=== PATIENT | female | born 1990 | race Caucasian/White ===

== ENCOUNTER 2020-06-26 10:13 | Inpatient (IN) | payer BC ==
[2020-06-26] MEDS ORDERED: Oxytocin/Normal Saline 60 UNIT/1,000 ML BAG ONE (10:15)
[2020-06-26] MEDS ORDERED: Succinylcholine 200 MG/10 ML MDV IV ONE (10:45)
[2020-06-26] MEDS ORDERED: Propofol 200 MG/20 ML SDV IV ONE (10:45)
[2020-06-26] MEDS ORDERED: Dexamethasone 4 MG/ML SDV IV ONE (10:45)
[2020-06-26] MEDS ORDERED: Methylergonovine 0.2 MG/1 ML Amp ONE (10:59)
[2020-06-26] MEDS ORDERED: ceFAZolin 2 GM in Premix Bag 1 BAG IV ONE (11:00)
[2020-06-26] MEDS ORDERED: Misoprostol 400 MCG (4 X 100 MCG TAB) ONE (11:14)
[2020-06-26] MEDS ORDERED: Misoprostol 400 MCG (4 X 100 MCG TAB) RECTAL ONE (11:15)
[2020-06-26] MEDS ORDERED: Lactated Ringers 1,000 ML IV ONE (11:15)
[2020-06-26] MEDS ORDERED: Methylergonovine 0.2 MG/1 ML Amp IM ONE (11:15)
[2020-06-26] MEDS ORDERED: Tranexamic Acid 1,000 MG in Sodium Chloride 0.9% 100 ML IV ONE (11:15)
[2020-06-26] MEDS ORDERED: Oxytocin/Normal Saline 30 UNIT/500 ML BAG IV SCH (11:31)
[2020-06-26] MEDS ORDERED: Acetaminophen/oxyCODONE 325-5 MG Tab PO PRN (11:36)
[2020-06-26] MEDS ORDERED: Naloxone 2 MG/2 ML Syringe IVPUSH PRN (11:36)
[2020-06-26] MEDS ORDERED: Carboprost Tromethamine 250 MCG/1 ML Amp IM PRN (11:36)
[2020-06-26] MEDS ORDERED: Tranexamic Acid 1,000 MG in Sodium Chloride 0.9% 100 ML IV PRN (11:36)
[2020-06-26] MEDS ORDERED: Acetaminophen 325 MG Tab PO PRN (11:36)
[2020-06-26] MEDS ORDERED: diphenhydrAMINE 50 MG/ML SDV IVPUSH PRN (11:36)
[2020-06-26] MEDS ORDERED: Ondansetron 4 MG/2 ML SDV IVPUSH PRN (11:36)
[2020-06-26] MEDS ORDERED: ePHEDrine 50 MG/ML SDV IVPUSH PRN (11:36)
[2020-06-26] MEDS ORDERED: fentaNYL Citrate/PF 1,500 MCG/30 ML PCA Vial ONE (11:54)
[2020-06-26] MEDS ORDERED: fentaNYL Citrate/PF 1,500 MCG/30 ML PCA Vial IV PRN ×2 (12:00→12:15)
[2020-06-26] MEDS ORDERED: Ketorolac 30 MG/ML SDV IVPUSH ONE (12:00)
[2020-06-26] MEDS ORDERED: Metoclopramide 10 MG/2 ML SDV IVPUSH PRN (13:00)
[2020-06-26] MEDS: Simethicone 80 MG Tab.Chew PO SCH ×3 (13:12→20:22)
--- NOTE | 2020-06-26 14:39 | OR ---
DATE: 06/26/2020 PREOPERATIVE DIAGNOSES: 1. Intrauterine at 33 and 2/7 weeks, confirmed with 6 and 1/7 weeks ultrasound. 2. Vaginal bleeding, most likely secondary to placenta previa. 3. Placenta previa. 4. Status post betamethasone last month. 5. Hypocoiled umbilical cord per problem list. 6. G4, P2-0-1-2. POSTOPERATIVE DIAGNOSES: 1. Intrauterine at 33 and 2/7 weeks, confirmed with 6 and 1/7 weeks ultrasound-delivered. 2. Vaginal bleeding, most likely secondary to placenta previa. 3. Placenta previa. 4. Status post betamethasone last month. 5. Hypocoiled umbilical cord per problem list. 6. G4, P2-0-1-2. 7. hemorrhage with an EBL of 1000 mL. 8. Uterine atony, requiring TXA 1 g, Cytotec 800 mcg rectally, and Methergine 0.2 mg IM. 9. Excessive bleeding and blood noted upon entry into the uterus with bleeding suspected secondary to placenta previa. ANESTHESIA: General. ESTIMATED BLOOD LOSS: 1000 mL. IV FLUIDS: 1500 mL. URINE OUTPUT: 200 mL, an kim-colored yellow. START: 10:55. UTERINE INCISION: 10:56. DELIVERY: 10:56. STOP: 11:18. FINDINGS: Male, score and weight pending. PROCEDURE IN DETAIL: After proper consent was obtained, the patient was brought to the operating room, where abdomen was prepped and draped in normal sterile fashion. The patient was placed in supine position with left lateral tilt using Betadine for scrub due to stat nature. General anesthesia was subsequently induced. Subsequently, skin incision was made on lower abdomen in transverse Pfannenstiel- type fashion. This was carried down the fascia and scored in the midline. Subcutaneous tissue was raked laterally bluntly and fascial incision was extended transversely in a blunt technique. Rectus and pyramidalis muscles were dissected from the fascia using blunt technique both inferiorly and superiorly and rectus muscles were in midline with blunt technique. Abdominal cavity was entered in blunt technique. Incision was extended superiorly and inferiorly with blunt technique. King O large retractor was then introduced and used. Vesicouterine peritoneum was identified, incised in transverse fashion with Metzenbaum scissors and a bladder flap was made digitally. A curvilinear incision was made on the lower uterine segment at 1056 hours. Minimal clear fluid returned with excessive amount of bright red blood and some darker clot-type blood. Uterine incision was then extended in a transverse fashion using blunt technique. vertex was then delivered through the incision followed by the rest of the infant without difficulty. Mouth and nares were suctioned. Cord was doubly clamped and cut and infant was brought over to the team for resuscitation. Then, approximately 10 mL of cord blood was then obtained for labs. Placenta then delivered with gentle cord traction and fundal massage. Uterine cavity was then cleared of all blood clots and debris with lap sponge. Grady clamps were used to grasp the uterine incision, and this was closed in a running locked fashion and tied at lateral margins with 1-0 Vicryl. Second imbricating layer was applied with 1-0 Vicryl and tied at lateral margins. First inspection of the uterine incision revealed hemostasis. At this time, uterine atony was noted. TXA had been given. Cytotec 800 mcg rectally was called for and Methergine 0.2 mg was called for to be given. King O was then removed and paracolic gutters were then cleared of all blood clots and debris with lap sponge. Anterior cul-de-sac was then irrigated copiously. All blood clots and debris were removed. Second and final inspection of the uterine incision and the cul-de-sac revealed hemostasis. Rectus muscles were then reapproximated in midline with [id number] stitch of 1-0 Vicryl. Subfascial tissue found to be hemostatic. Fascia closed in a running fashion, tied at lateral margin with 0 looped PDS. Subcutaneous tissue was irrigated copiously. Hemostasis was reassured. Skin was reapproximated with medium janie. Sterile Aquacel dressing applied. Uterine fundus was firm and massaged at the conclusion of the case -3 below umbilicus. No immediate complications were noted. Sponge, lap, and needle counts were correct. The patient received 2 g of Ancef preoperatively, Pitocin per protocol, and received Toradol at the conclusion of case for pain control as well as a LIFE SCIENCES INSTRUCTOR. Mother is currently stable at the time of dictation. Infant is being worked up and evaluated by Dr. Gan and NICU team is on their way. [facility] /[id number] ARELIS
--- NOTE | 2020-06-26 15:45 | HP ---
PATIENT IDENTIFICATION: Sapna Kowalski is a 30-year-old G4, P2-0-1-2, intrauterine at 33-2/7 weeks with posterior placenta previa, presents with vaginal bleeding. HISTORY OF PRESENT ILLNESS: The patient states around 8 a.m. this morning she had some different discharge and preceding this over the last 24 hours has not been feeling very well. Then, at approximately 9:45, she has noticed vaginal bleeding that was described as bright red blood, similar to a period like bleed. She was subsequently brought in via ambulance. She does note feeling more bleeding when she was in the ambulance and arrived. Ambulance did note some mild clots with vaginal bleeding as well. The patient denies any pain. She denies any leaking of fluid. To put this in context, she had an ultrasound done in May that did reveal a complete previa by chart review and this was noted prior with problem list listing on March 18, 2020. She had an ultrasound on 06/24/2020 with ultrasound of umbilical artery Doppler and ultrasound biophysical profile with no stress, with normal CARMEN, BPP of 8/8, estimated weight of 24% with normal umbilical arterial Doppler and addendum to this stay showing a posterior placenta is identified, but the tip to the internal os is not well demonstrated on the static images series. This also notes that a complete previa was noted on the 05/27/2020 ultrasound. Records called for, reviewed as below, and supplemented by patient history. ANTEPARTUM LABORATORIES: ABO blood type O positive. Negative antibody. Rubella immune. Syphilis antibody is nonreactive. Negative hepatitis B surface antigen. Negative HIV. Hemoglobin last done on 05/27/2020 was 11.7 with 1 hour GTT being 84. ALLERGIES: The patient is allergic to sulfa drugs. MEDICATIONS: The patient states she has been on vitamins and Unisom as needed. OBSTETRIC HISTORY: 1. 05/17/2013, delivered 40-1/7 weeks, 6 pounds 10.1 ounce female, spontaneous vaginal delivery. 2. 06/28/2015, 39-6/7 weeks, 6 pounds 15.3 ounce male, spontaneous vaginal delivery. 3. Spontaneous AB in 04/2019. PAST MEDICAL HISTORY: Remarkable for asthma with inducible asthma with rescue inhaler, never intubated and never needed steroids as well as anxiety noting going off medication in October 2011. PAST SURGICAL HISTORY: D and C noted and wisdom teeth extraction noted in 2008 and 2011. The patient relates a surgery with clitoral abscess done in [place]. FAMILY HISTORY: Hypertension in mother. Father with heart disease. Maternal grandmother with Alzheimer disease. Heart disease in maternal grandfather. Heart attack in paternal grandfather. Negative family history of defects, diabetes, cystic fibrosis, labor, seizures, spontaneous abortions, multiple births, or bleeding problems or anesthesia problems. SOCIAL HISTORY: The patient lives in the [facility]. She denies any tobacco, alcohol, or drug use. REVIEW OF SYSTEMS: Quickly obtained. Negative for fever, chills, sweats, cough, cold, runny nose, change in bowel or bladder habits, swelling, numbness, tingling, and otherwise review of systems fully reviewed and felt to be contributory to the above. OBJECTIVE: Vital Signs: To be updated and listed in [employer]. The patient is afebrile. Heart rate by central exam was approximately 92, respiratory rate was 16. Appearance: Female, appears stated age, acting appropriate. Nontoxic appearance. Somewhat tearful in discussing the course and her vaginal bleeding. Head: Atraumatic. EOMs intact. PERRLA. No scleral icterus. No obvious otorhinorrhea. Mucous membranes moist. Neck: No obvious tenderness. Lungs: Clear to auscultation bilaterally. No increased work of breathing. Heart: S1, S2. Regular rate and rhythm. Abdomen: Gravid. Robert's indeterminate. Nontender, nondistended. Bowel sounds positive. No organomegaly, pulsatile masses, or obvious hernias. No rebound, rigidity, or guarding. Genitourinary: Pad was removed. Did note bright red blood and some clots in the pad that was removed and subsequent gingerly exam was splitting the labia around the vaginal area and does reveal approximately a golf ball-sized clot with active bleeding behind this. Extremities: No peripheral edema. Deep tendon reflexes 2 to 3/4 bilaterally and symmetric in lower extremities. Psychiatric: Mood and affect congruent. Judgment and insight intact. Skin: Without cyanosis, clubbing, or jaundice. heart tones were detected immediately and felt to be reassuring. Tocometer revealed no evidence of contractions. The patient was evaluated in the ER. Labs were drawn there including a CBC, type and cross match for 4 units, as well as COVID testing. IV had been started by ambulance crew. OR was notified before the patient arrived to the ER, was prepping after previous case and as soon as they were ready, labs were drawn. Consent was obtained. The patient was brought to the operating room where a primary low transverse was performed under general anesthesia. ASSESSMENT: 1. Intrauterine at 33-2/7 weeks confirmed with 6-1/7 week ultrasound. 2. Vaginal bleeding most likely related to the placenta previa. 3. Placenta previa. This was noted on previous ultrasounds. Please see notes as above. 4. Status post betamethasone per patient, receiving it in the past. I believe in May she received betamethasone per chart review. 5. Per chart hypocoiled umbilical cord per problem list. 6. G4, P2-0-1-2. PLAN: Due to her vaginal bleeding diagnosed placenta previa, I did discuss with the patient proceeding to the OR in a stat fashion to proceed with primary low transverse . I did discuss with her risks, benefits, alternatives, and complications of including, but not limited to infection; bleeding; damage to internal organs such as bowel, bladder, tubes, uterus, ovaries, and sometimes fetus; rarely needing a blood transfusion or further surgery; and even rarer maternal or . She understands, agrees, and wished to proceed. Verbal and written consent obtained. Questions were answered. Proceed to the OR as soon as crew was ready and available from the ER in a stat fashion where primary low transverse was done under general anesthesia. Please see op report for further details. [facility] /[id number]
[2020-06-26] MEDS: Docusate Sodium 100 MG Cap PO PRN (17:42)
[2020-06-26] MEDS: Ketorolac 30 MG/ML SDV IVPUSH SCH ×2 (17:42→23:43)
[2020-06-26] MEDS: Lactated Ringers 1,000 ML IV SCH (19:30)
[2020-06-27] MEDS: Lactated Ringers 1,000 ML IV SCH (03:13)
[2020-06-27] MEDS: Ketorolac 30 MG/ML SDV IVPUSH SCH (05:37)
[2020-06-27] MEDS: Simethicone 80 MG Tab.Chew PO SCH ×4 (08:32→21:15)
[2020-06-27] MEDS: Acetaminophen/oxyCODONE 325-5 MG Tab PO PRN ×3 (08:32→21:15)
[2020-06-27] MEDS: Docusate Sodium 100 MG Cap PO PRN ×2 (08:32→21:15)
[2020-06-27] MEDS: Prenatal Multivitamin with Calcium/Folic Acid/Iron Tab PO SCH (08:32)
--- NOTE | 2020-06-27 09:27 | PN ---
DATE: 06/27/2020 SUBJECTIVE: Postop day #1. A 30-year-old female, status post emergency primary low transverse section at 33 weeks 2 days' gestation for hemorrhaging complete placenta previa. Procedure was carried out with an estimated blood loss of 1000 mL and uterine atony requiring TXA, Cytotec, and Methergine. After initial recovery, the patient continued to do well. No chest pain or shortness of breath. Nursing staff has noted that she has fair skin and appears pale, but denies any lightheadedness or anemia symptoms when they had her up to ambulate once. She is tolerating her regular diet and they will be advancing her cares today. She did have some gas distention and that discomfort was improved after ambulating and being able to pass some flatus. Otherwise, she also suffers from some chronic anxiety and previously was treated with Effexor. She is not certain at this time if she is ready to restart medications, but does want to discuss what her options are. OBJECTIVE: General: The patient doing well, resting in her hospital bed. Vital Signs: Temperature is 98.7, pulse 87, blood pressure 113/72, respiratory rate of 16, and O2 saturations 98% on room air. Heart: Regular without any murmur. Lungs: Clear to auscultation bilaterally. Abdomen: Distended, but soft. Positive bowel sounds in all 4 quadrants. Aquacel dressing is intact with no obvious bleeding or strike through. Extremities: Trace edema. No erythema or tenderness noted. A Cristina catheter in place with adequate urine output. Psychiatric: The patient is demonstrating appropriate insight, judgment. Normal motor and speech content. Appropriate level of concern and anxiety for the given circumstances and her history. LABORATORY DATA: Admission hemoglobin of 11.6, currently down to 9.2. Admission platelets of 250, currently down to 223. ASSESSMENT: 1. Status post emergency section. 2. Intrapartum hemorrhage of approximately 1000 mL. 3. Complete placenta previa. 4. Anxiety. PLAN: Discussed with the patient possible discharge tomorrow as long as things go well today. Otherwise, likely discharge the day after that. Her baby is in the intensive care unit in [place] and she is getting regular updates. She certainly understands that there is not much that she can do for her baby in [place] at this time and ensuring that she has appropriate recovery is important so as not to become an additional patient in [place] herself. She will advance with her cares today and will be discontinuing the DIRECTIONAL BORE OPERATOR, Cristina, and hopefully getting her down to 1 saline lock rather than having 2 IVs running. Discussed with her options of restarting Effexor, which is category, risk category 2. Other choices would potentially be Zoloft or Prozac. She reports that she wants to kind of see how things go first and she may consider awaiting on starting any medications until she sees her baby in [place] and finds out how severe her anxiety is. Her questions were answered and she was happy with the plan. [facility] /[id number]
[2020-06-28] MEDS: Acetaminophen/oxyCODONE 325-5 MG Tab PO PRN ×3 (01:13→11:08)
[2020-06-28] MEDS: Ibuprofen 800 MG Tab PO PRN ×2 (01:14→09:01)
[2020-06-28] MEDS: Prenatal Multivitamin with Calcium/Folic Acid/Iron Tab PO SCH (09:00)
[2020-06-28] MEDS: Docusate Sodium 100 MG Cap PO PRN (09:00)
[2020-06-28] MEDS: Simethicone 80 MG Tab.Chew PO SCH (09:00)
[2020-06-28] MEDS ORDERED: Oxytocin/Normal Saline 30 UNIT/500 ML BAG IV ONE (11:29)
[2020-06-28] MEDS ORDERED: fentaNYL 250 MCG/5 ML SDV IV ONE (11:29)
--- NOTE | 2020-06-28 15:43 | DISCH ---
ADMITTING DIAGNOSES: 1. 33-2/7 weeks gestation. 2. Placenta previa with hemorrhage. 3. Hypocoiled umbilical cord. 4. 4, para 2-0-1-2. 5. Anxiety. DISCHARGE DIAGNOSES: 1. 33-2/7 weeks gestation. 2. Placenta previa with hemorrhage. 3. Hypocoiled umbilical cord. 4. 4, para 2-1-1-3. 5. Anxiety. 6. Status post emergency primary low transverse section. 7. hemorrhage of 1000 mL output. 8. Premature infant transferred to Intensive Care Unit causing additional emotional stress plus mother. BRIEF HISTORY: A 30-year-old female with the above-listed primary diagnoses, presented to the hospital with significant vaginal bleeding, and was taken to the operating room for emergency primary low transverse section, which was complicated by uterine atony and 1000 mL of estimated blood loss. Her hemorrhage was controlled with TXA, Cytotec, and methargen. Surgery was otherwise uncomplicated and no other injury sustained. Procedure was performed under general anesthesia, and she did quite well. HOSPITAL COURSE: Hospital course has been good since surgery. She has been ambulating and passing flatus, voiding without difficulty. Vaginal bleeding has been well controlled. She has a little bit of chest discomfort but doing well with incentive spirometry. No fevers, no chills, no cough. No symptoms of pulmonary embolism or respiratory infection. She has not yet had a bowel movement but reports she usually only has a bowel movement every 2 to 3 days and did have 1 just prior to coming into the hospital and reports that her ability to pass flatus is reassuring. She is anxious to be discharged from the hospital at this time so that she can go see her baby in the Intensive Care nursery. Her anxiety has been a little bit heightened, but she is hoping to discontinue the narcotic pain medications and see how she does with the baby being in the NICU before she considers restarting the Effexor that she has been on previously and also considering use of either Zoloft or Prozac, which maybe slightly safer or at least more well known for use in . DISCHARGE CONDITION: Good. She is meeting all discharge criteria. PHYSICAL EXAMINATION: Vital Signs: Temperature is 98.2, pulse is 88, blood pressure 116/77, respiratory rate of 14, and O2 saturation 98% on room air. Heart: Regular without murmur. Lungs: Clear to auscultation bilaterally. Abdomen: Soft but distended. She has bowel sounds present in all 4 quadrants. Incision site is covered with Aquacel dressing, which is intact and does not show any strike through. Extremities: No edema, erythema, or tenderness is noted. LABORATORY DATA: Admission hemoglobin 11.6, discharge 9.2; admission platelets 250 and discharge 223; and she was COVID test negative. DISPOSITION: Home with family. MEDICATIONS: 1. Percocet 5/325 one to 2 tablets every 4 to 6 hours as needed for pain. 2. Colace 100 mg p.o. b.i.d. for stool softening. 3. Iron 325 mg twice daily. 4. Ibuprofen 800 mg every 8 hours as needed for pain. 5. Tylenol 650 mg as needed for pain. 6. Zofran 4 mg every 6 hours as needed for nausea. FOLLOWUP: She will need to make a followup appointment to see Dr. Pineda in 7 to 10 days for postoperative check and staple removal. INSTRUCTIONS: Throughout her hospital stay, we extensively discussed anticipated symptoms from being post section and things to watch for regarding wound care and potential for infection, dehiscence, and other issues. We also discussed her anxiety and increased risk of depression, although she does not want to start medications right away. I encouraged her to reach out to any of her medical providers for help if the symptoms start to increase over the next few days before she is seen for followup. Her family is also aware to be mindful of her emotions. Discussed with her the need to continue to take the stool softener and encouraged ambulating for passing of the flatus and having more regular bowel movements. She will continue expressing breast milk for her . [facility] /[id number] ARELIS
== END 2020-06-28 11:30 | disposition home or self-care (01) | DRG 540 ==
LOC: DL.OBCHECK 10:13 → OBSVTOIN 10:57 → DL.OB 10:57 → UNDOADMOB 10:57 → INTOOBSV 10:57 → UNDOADMOB 11:05 → DL.OB 11:05
PROVIDERS: ADMIT Family Medicine; ATTEND Family Medicine
PROC: 10D00Z1 Extraction of Products of Conception, Low, Open Approach (ICD-10-PCS; principal; 2020-06-26)
DX: O44.13 Complete placenta previa with hemorrhage, third trimester (principal); Z3A.33 33 weeks gestation of pregnancy; Z37.0 Single live birth; O69.89X0 Labor and delivery complicated by other cord complications, not applicable or unspecified; O72.1 Other immediate postpartum hemorrhage; Z79.899 Other long term (current) drug therapy; Z20.828 Contact with and (suspected) exposure to other viral communicable diseases
CPT/HCPCS: 01961; 36415; 51702; 85025; 85027; 86850; 86900; 86901; 86920; 86922; 94010; A9270-GY; J0330; J0690; J1100; J1885; J2210; J2590; J2704; J2765; J3010; J7050; J7120; U0002